=== PATIENT | female | born 1985 | race African-American/Black ===

== ENCOUNTER 2017-07-30 08:00 | Emergency (ER) | payer OTHER, MEDICAID ==
[~2017-07-30] VITALS: Ht 162.6 cm; Wt 55.0 kg
[2017-07-30] MEDS ORDERED: CYCLOBENZAPRINE 10MG TABLET PO SCH (09:15)
[2017-07-30] MEDS ORDERED: IBUPROFEN 400MG TABLET PO ONE (09:15)
[2017-07-30 09:41] VITALS: BP 76/85
== END 2017-07-30 09:44 | disposition home or self-care (01) ==
LOC: ER 08:46
DX: S80.12XA Contusion of left lower leg, initial encounter (principal); V43.52XA Car driver injured in collision with other type car in traffic accident, initial encounter; Y93.89 Activity, other specified; Y92.488 Other paved roadways as the place of occurrence of the external cause
CPT/HCPCS: 99283